=== PATIENT | male | born 1990 | race Two or more races ===

== ENCOUNTER 2023-10-24 19:49 | Emergency (ER) | payer MEDICAID, OTHER ==
[~2023-10-24] VITALS: Ht 170.2 cm; Wt 134.0 kg
[2023-10-24 20:23] LABS: Basophils # (auto) 0 10 ^3/uL (0-0.2); Basophils % (auto) 0.5 % (0.0-2.0); Eosinophils # (auto) 0.2 10 ^3/uL (0-0.8); Hematocrit 42.6 % (41.0-53.0); Hemoglobin 14.8 g/dL (13.5-17.5); Lymphocytes # (auto) 3.1 10 ^3/uL (0.4-5.4); Lymphocytes % (auto) 28.5 % (10.0-50.0); Mean Corpuscular Hemoglobin 29.3 pg (28.0-32.0); Mean Corpuscular Hgb Conc. 34.7 g/dL (32.0-36.0); Mean Corpuscular Volume 84.4 fL (80.0-100.0); Monocytes # (auto) 0.7 10 ^3/uL (0-1.3); Monocytes % (auto) 6.7 % (0.0-12.0); Neutrophils # (auto) 6.8 10 ^3/uL (1.6-8.6); Neutrophils % (auto) 62.3 % (37.0-80.0); Nucleated Red Blood Cells % 0.1 %; Platelet Count (auto) 344 10^3/uL (140-450); Red Blood Cells 5.05 10^6/uL (4.5-5.90); Red Cell Distribution Width 14.1 % (11.8-14.3); White Blood Cell 10.9 10^3/uL (4.4-10.8)
[2023-10-24 20:37] LABS: Alanine Aminotransferase 36 U/L (7-40); Alkaline Phosphatase 79 U/L (46-116); Anion Gap 6 (5-15); Aspartate Aminotransferase 21 U/L (13-40); BUN/Creatinine Ratio 11.8 (10.0-20.0); Blood Urea Nitrogen 11 mg/dL (9-23); Calcium 9.9 mg/dL (8.7-10.4); Carbon Dioxide 27 mmol/L (20-30); Chloride 104 mmol/L (98-107); Glucose 94 mg/dL (74-106); Potassium 3.8 mmol/L (3.5-5.1); Sodium 137 mmol/L (136-145)
[2023-10-24 20:38] LABS: Albumin 4.6 g/dL (3.2-4.8); Bilirubin, Total 0.7 mg/dL (0.2-1.0); Total Protein 7.1 g/dL (5.7-8.2)
[2023-10-24 22:49] VITALS: BP 137/85; PULSE 60; RESP 16; TEMP 98.7; O2SAT 96
== END 2023-10-24 22:53 | disposition home or self-care (01) ==
LOC: ER 19:49
DX: R07.89 Other chest pain (principal); Z79.899 Other long term (current) drug therapy
CPT/HCPCS: 36415; 71046; 80053; 83735; 83880; 84484; 85025; 93005

== ENCOUNTER 2024-09-02 21:39 | Emergency (ER) | payer MEDICAID ==
[~2024-09-02] VITALS: Ht 170.2 cm; Wt 139.1 kg
[2024-09-02 22:01] VITALS: TEMP 98.3
[2024-09-02] MEDS: IPRATROPIUM BROM 0.5 MG/2.5ML INH SOL NEB ONE (22:16)
[2024-09-02] MEDS: ALBUTEROL SULF 2.5 MG/0.5ML(0.5%) NEB SOLN NEB ONE (22:16)
[2024-09-02] MEDS: methylPREDNISolone SOD SUCC 125 MG/2 ML VL IM ONE (22:19)
[2024-09-02] MEDS ORDERED: AZIT-43 PO (22:23)
[2024-09-02] MEDS ORDERED: ALBUAER3 IN (22:23)
[2024-09-02] MEDS ORDERED: PRED20TA2 PO (22:23)
--- NOTE | 2024-09-02 22:24 | ED.PDOC ---
SOB-HPI HPI Comments 34-year-old male presents to ER with complaints of cough x1 week. Patient with past medical history significant for asthma reports that he has been experiencing productive cough with clear phlegm and intermittent shortness of breath/wheezing x1 week. Reports that he has been using his albuterol inhaler with slight relief. Denies any pain and presents to ER ambulatory on arrival, steady gait, in no distress. Denies fever, body aches, chills, chest pain, hemoptysis, sore throat, headache or any further symptoms/complaints Chief Complaint: Cough Time Seen by MD: 21:42 Primary Care Provider: UNKNOWN Reviewed notes: Nurses Notes, Medications, Allergies Information Source: Patient Mode of Arrival: Ambulatory Past Medical History PAST MEDICAL HISTORY: Denies Surgical History: Denies all surgeries Family History Family History: Unknown, Family hx of heart linda Social History Smoker: Non-Smoker Alcohol: Occasionally Drugs: Denies Drug Use Lives In: Home Constitutional: denies: chills, diaphoresis, fatigue, fever, malaise, sweats, weakness, others EENTM: denies: blurred vision, double vision, ear bleeding, ear discharge, ear drainage, ear pain, ear ringing, eye pain, eye redness, hearing loss, mouth pain, mouth swelling, nasal discharge, nose bleeding, nose congestion, nose pain, photophobia, tearing, throat pain, throat swelling, voice changes, others Respiratory: reports: others (As stated in HPI) Cardiovascular: denies: chest pain, dizzy spells, diaphoresis, Dyspnea on exertion, edema, irregular heart beat, left arm pain, lightheadedness, p alpitations, PND, syncope, others Gastrointestinal: denies: abdomen distended, abdominal pain, blood streaked bowels, constipated, diarrhea, dysphagia, difficulty swallowing, hematemesis, melena, nausea, poor appetite, poor fluid intake, rectal bleeding, rectal pain, vomiting, others Genitourinary: denies: burning, dysuria, flank pain, frequency, hematuria, incontinence, penile discharge, penile sore, pain, testicle pain, testicle swelling, urgency, others Neurological: denies: dizziness, fainting, headache, left sided numbness, left sided weakness, numbness, paresthesia, pre-existing deficit, right sided numbness, right sided weakness, seizure, speech problems, tingling, tremors, weakness, others Musculoskeletal: denies: back pain, gout, joint pain, joint swelling, muscle pain, muscle stiffness, neck pain, others Integumetry: denies: bruises, change in color, change in hair/nails, dryness, laceration, lesions, lumps, rash, wounds, others Allergic/Immunocompromised: denies: Difficulty Healing, Frequent Infections, Hives, Itching, others Hematologic/Lymphatic: denies: anemia, blood clots, easy bleeding, easy b ruising, swollen glands, others Endocrine: denies: excessive hunger, excessive sweating, excessive thirst, excessive urination, flushing, intolerance to cold, intolerance to heat, unexplained weight gain, unexplained weight loss, others Psychiatric: denies: anxiety, bipolar disorder, depression, hopeless, panic disorder, schizophrenia, sleepless, suicidal, others Physical Exam General Appearance: No Apparent Distress, Obese HEENT: Normal ENT Inspection, PERRL/EOMI, Pharynx Normal, TMs Normal Neck: Full Range of Motion, Other (TTP to bilateral cervical paraspinals noted. 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 Was a procedure done?: No Sedation Sedation?: No Differential Dx Differential Diagnosis: Pneumonia, Pulmonary Embolism, Respiratory Distress, Pharyngitis X-Ray, Labs, Meds, VS Vital Signs Date Time Temp Pulse Resp B/P (MAP) Pulse Ox O2 Delivery O2 Flow Rate FiO2 09/02/24 22:16 18 97 Room Air* 0 21 09/02/24 22:01 98.3 85 20 114/75 (88) 95 98.3 Current Medications Medications (Trade) Dose Ordered Sig/Jony Route Start Time Stop Time Status Last Admin Albuterol (Ventolin Medneb) 5 mg ONCE ONCE NEB 09/02/24 22:15 09/02/24 22:16 DC 09/02/24 22:16 Ipratropium [place] (Atrovent Medneb) 0.5 mg ONCE ONCE NEB 09/02/24 22:15 09/02/24 22:16 DC 09/02/24 22:16 Methylprednisolone Sodium Succinate (Solu Medrol) 125 mg ONCE ONCE IM 09/02/24 22:15 09/02/24 22:16 DC 09/02/24 22:19 PATIENT: GURPREET PANDEY ACCT: [id number] UNIT: [id number] : 1990 LOC: ER ROOM / BED: / AGE / SEX: 34 / M ADM STATUS: REG ER SERVICE 06 ORDERING PHYSICIAN: SALAS CORREA PROCEDURE(s): CXR2 - CHEST TWO VIEWS ROUTINE REASON: cough ORDER NUMBER(s): [id number], ACCESSION NUMBER(s): [id number] XY CHEST TWO VIEWS ROUTINE CLINICAL HISTORY: cough COMPARISON: XY CHEST TWO VIEWS ROUTINE on DOS: 10/24/23 TECHNIQUE: Frontal and lateral view of the chest was obtained FINDINGS: Lines and Tubes: None Lungs: No focal consolidation. Pleura: No effusion. No pneumothorax. Cardiomediastinal contours: Unremarkable Bones: No acute osseous abnormality. IMPRESSION: 1. No acute cardiopulmonary disease. ATED BY: YARON MABRY Jr., DO DICTATED DATE/TIME: 09/02/242305 SIGNED BY: YARON MABRY Jr., SIGNED DATE/TIME: 09/02/242305 CC: Albuterol 5 mg nebulized treatment ordered Atrovent 0.5 mg nebulized treatment ordered Solu-Medrol 125 mg IM ordered Chest x-ray reviewed Patient had improvement in symptoms in no distress prior to discharge Advised to drink plenty of fluids Advised to follow up with PCP in 1-2 days Patient verbalized understanding and agreeable with current plan of care Advised to return to ER immediately if symptoms worsen Images Reviewed?: Images reviewed and evaluated by me Time of 1ST Reevaluation: 22:04 Reevaluation 1ST: N/A Patient Education/Counseling: Diagnosis, Treatment, Prognosis, Need For Follow Up Family Education/Counseling: No Family Present SEPSIS Sepsis Screen Date sepsis recognized/suspect: Sep 02, 2024 Time Sepsis recognized/suspect: 2200 Recent Procedure: No On Antibiotic Therapy: No Respiratory Rate >20: No Heart Rate >90: No Temp<36 C (96.8 F) or >38.3 C: No SBP <90 or MAP <65 mmHG: No New Acute Mental Status Change: No Is the patient on CPAP, BIPAP,: No Physician Orders Chest Two Views Routine (09/02/24 22:07) Vital Signs Date Time Temp Pulse Resp B/P (MAP) Pulse Ox O2 Delivery O2 Flow Rate FiO2 09/02/24 22:16 18 97 Room Air* 0 21 09/02/24 22:01 98.3 85 20 114/75 (88) 95 98.3 Medications Medications Dose Ordered Sig/Jony Route Start Time Stop Time Status Last Admin Dose Admin Albuterol 5 mg ONCE ONCE NEB 09/02/24 22:15 09/02/24 22:16 DC 09/02/24 22:16 Ipratropium [place] 0.5 mg ONCE ONCE NEB 09/02/24 22:15 09/02/24 22:16 DC 09/02/24 22:16 Methylprednisolone Sodium Succinate 125 mg ONCE ONCE IM 09/02/24 22:15 09/02/24 22:16 DC 09/02/24 22:19 Departure 1 Departure Time of Disposition: 22:20 Impression: Primary Impression: Acute asthmatic bronchitis Disposition: HOME / SELF CARE / HOMELESS Condition: Stable e-Prescriptions Albuterol Sulfate (VENTOLIN MDI) 90 Mcg Ih 2 PUFF IN Q6HPRN, #1 INH 0 Refills Prov: SALAS CORREA 09/02/24 Prednisone (Prednisone) 20 Mg Tab 20 MG PO BID for 5 Days, #10 TAB 0 Refills Prov: SALAS CORREA 09/02/24 Azithromycin (Azithromycin) 250 Mg Tab 250 MG PO DAILY MDD 500 for 5 Days, #6 TAB 0 Refills 2 TABLETS ORALLY ON DAY ONE, THEN 1 TABLET ORALLY DAILY FOR 4 DAYS Prov: SALAS CORREA 09/02/24 Discharged With: Self Critical Care Note Critical Care Time?: No Stability Stability form required: No Heart Score Heart Score: Heart Score Response (Comments) Value History N/A 0 EKG N/A 0 Age N/A 0 Risk Factors N/A 0 Troponin N/A 0 Total 0 SALAS CORREA Sep 02, 2024 22:24
--- NOTE | 2024-09-02 23:09 | DVH ---
XY CHEST TWO VIEWS ROUTINE CLINICAL HISTORY: cough COMPARISON: XY CHEST TWO VIEWS ROUTINE on DOS: 10/24/23 TECHNIQUE: Frontal and lateral view of the chest was obtained FINDINGS: Lines and Tubes: None Lungs: No focal consolidation. Pleura: No effusion. No pneumothorax. Cardiomediastinal contours: Unremarkable Bones: No acute osseous abnormality. IMPRESSION: 1. No acute cardiopulmonary disease.
[2024-09-02 23:59] VITALS: BP 128/86; PULSE 83; RESP 20; O2SAT 95
== END 2024-09-03 00:03 | disposition home or self-care (01) ==
LOC: ER 21:39
DX: J45.909 Unspecified asthma, uncomplicated (principal); F10.90 Alcohol use, unspecified, uncomplicated; Y90.9 Presence of alcohol in blood, level not specified
CPT/HCPCS: 71046; 94640; 96372; 99283; J2919